=== PATIENT | female | born 1970 | race Caucasian/White ===

== ENCOUNTER 2017-09-06 10:56 | Emergency (ER) | payer MEDICAID ==
[~2017-09-06] VITALS: Ht 160 cm; Wt 82.6 kg
[2017-09-06 11:07] VITALS: BP 146/97
== END 2017-09-06 12:15 | disposition home or self-care (01) ==
LOC: ED 10:56
DX: L50.0 Allergic urticaria (principal)
CPT/HCPCS: J1200; J2930